=== PATIENT | female | born 1995 | race Caucasian/White ===

== ENCOUNTER 2019-07-21 20:39 | Emergency (ER) | payer OTHER ==
[2019-07-21 21:04] VITALS: BP 132/82
--- NOTE | 2019-07-21 21:43 | UC ---
Throat Pain/Nasal [place] HPI - HPI Summary HPI Summary: 23 yo with upper respiratory symptoms x 1 week, with past history of sinusitis associated with URI's, typically requiring antibiotics. No fever. Minimal cough, no shortness of breath. Has used claritin D with minimal effect. - History of Current Complaint Chief Complaint: UCRespiratory Stated Complaint: SINUS CONGESTION Time Seen by Provider: 07/21/19 21:41 Hx Obtained From: Patient Hx Last Menstrual Period: 4 months ago (states just started new BCP) Onset/Duration: Gradual Onset, Lasting Days Severity: Moderate Pain Intensity: 4 Cough: Nonproductive Associated Signs & Symptoms: Positive: Sinus Discomfort Related History: Seasonal Allergies - Epiglottits Risk Factors Epiglottis Risk Factors: Negative - Allergies/Home Medications Allergies/Adverse Reactions: Allergies Allergy/AdvReac Type Severity Reaction Status Date / Time No Known Allergies Allergy Verified 07/21/19 20:59 Home Medications: Home Medications Acetaminophen [Tylenol Extra Strength] 1,000 mg PO Q12H PRN 07/21/19 [History Confirmed 07/21/19] Bcp 1 tab PO DAILY 07/21/19 [History] Loratadine [Claritin 10 MG CAP] 10 mg PO DAILY 07/21/19 [History Confirmed 07/21] PMH/Surg Hx/FS Hx/Imm Hx Previously Healthy: Yes - Surgical History Surgical History: None - Family History Known Family History: Positive: Non-Contributory - Social History Occupation: Employed Full-time - applying to medical school and 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 Alcohol Use: None Substance Use Type: None Smoking Status (MU): Never Smoked Tobacco Review of Systems All Other Systems Reviewed And Are Negative: Yes Constitutional: Positive: Fever - low grade, Fatigue Eyes: Positive: Negative ENT: Positive: Nasal Discharge, Sinus Congestion, Sinus Pain/Tenderness Respiratory: Positive: Cough Cardiovascular: Positive: Negative Gastrointestinal: Positive: Negative Genitourinary: Positive: Negative Motor: Positive: Negative Neurovascular: Positive: Negative Musculoskeletal: Positive: Negative Neurological: Positive: Headache Psychological: Positive: Negative Is Patient Immunocompromised?: No Physical Exam Triage Information Reviewed: Yes Appearance: Ill-Appearing Vital Signs: Initial Vital Signs Temp 99.7 F 07/21/19 21:01 Pulse 77 07/21/19 21:01 Resp 18 07/21/19 21:01 BP 132/82 07/21/19 21:01 Pulse Ox 100 07/21/19 21:01 ENT: Positive: Pharyngeal erythema, TM dull, Sinus tenderness Neck: Positive: Supple, Nontender, No Lymphadenopathy Respiratory: Positive: Lungs clear, Normal breath sounds Cardiovascular: Positive: RRR, No Murmur Musculoskeletal Exam: Normal Neurological Exam: Normal Psychological Exam: Normal Throat Pain/Nasal Course/Dx - Course Course Of Treatment: augmentin for treatment of acute sinusitis. Add flonase spray and continue decongestants. - Differential Dx/Diagnosis Differential Diagnosis/HQI/PQRI: Pharyngitis, Sinusitis, URI Provider Diagnosis: Acute bacterial sinusitis Discharge ED - Sign-Out/Discharge Documenting (check all that apply): Patient Departure All imaging exams completed and their final reports reviewed: No Studies - Discharge Plan Condition: Stable Disposition: HOME Prescriptions: Amoxicillin/Clavulanate TAB* [Augmentin TAB 875*] 875 mg PO BID #20 tab Patient Education Materials: Sinusitis (ED) Referrals: No Primary Care Phys,NOPCP [Primary Care Provider] - Additional Instructions: Begin augmentin for treatment of sinus infection, continuing use of Claritin D. You might add use of Flonase spray to sprays to both nostrils once daily, along with saline spray or neti pot use. Use ibuprofen 600mg up to 4 times daily for headache. - Billing Disposition and Condition Condition: STABLE Disposition: Home
[2019-07-21] MEDS ORDERED: Amoxicillin/Clavulanate TAB* 875 MG PO ONE (21:50)
== END 2019-07-21 22:10 | disposition home or self-care (01) ==
LOC: UCEAST 20:39
DX: J01.90 Acute sinusitis, unspecified (principal); B96.89 Other specified bacterial agents as the cause of diseases classified elsewhere
CPT/HCPCS: 99202; A9270-GY; G0463